=== PATIENT | male | born 1990 | race African-American/Black ===

== ENCOUNTER 2018-07-02 09:18 | Emergency (ER) | payer SELFPAY ==
[~2018-07-02] VITALS: Ht 188 cm; Wt 78.5 kg
[2018-07-02] MEDS ORDERED: DIPHTH,PERTUSS(ACELL),TET TOX 0.5 ML DISP.SYRIN. VAX IM ONE (10:15)
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
[2018-07-02 11:44] VITALS: BP 170/118
== END 2018-07-02 11:44 | disposition home or self-care (01) ==
LOC: ER 09:18
DX: R51 Headache (principal); M54.2 Cervicalgia; J45.909 Unspecified asthma, uncomplicated; Y08.89XA Assault by other specified means, initial encounter; Y93.89 Activity, other specified; Y92.89 Other specified places as the place of occurrence of the external cause; Y99.8 Other external cause status
CPT/HCPCS: 70450; 72125; 90471; 90715; 99284